=== PATIENT | male | born 1960 | race African-American/Black ===

== ENCOUNTER 2016-03-08 13:16 | Inpatient (IN) ==
[2016-03-08] MEDS: PERCOCET 10-325 PO PRN ×2 (13:50→20:07)
[2016-03-08 13:53] LABS: BASOPHILS % (AUTO) 0.3 % (0.0-3.0); EOSINOPHILS # (AUTO) 0.3 K/ul (0.0-0.7); EOSINOPHILS % (AUTO) 2.4 % (0.0-7.0); HEMATOCRIT 33.3 % (42.0-52.0); HEMOGLOBIN 11.4 g/dl (14.0-18.0); IMMATURE GRANULOCYTE % (AUTO) 0.3 % (0.0-5.0); LYMPHOCYTES # (AUTO) 1.6 K/uL (0.60-3.4); LYMPHOCYTES % (AUTO) 14.1 (10.0-50.0); MEAN CORPUSCULAR HEMOGLOBIN 29.5 pg (27.0-31.0); MEAN CORPUSCULAR HGB CONC 34.2 (31.8-35.4); MONOCYTES # (AUTO) 1.7 K/uL (0.4-2.0); NEUTROPHILS # (AUTO) 7.6 K/ul (2.0-6.9); NEUTROPHILS % (AUTO) 67.9; PLATELET COUNT 177 10^3/uL (140-440); RED BLOOD COUNT 3.87 10^6/ul (4.70-6.10); WHITE BLOOD COUNT 11.17 K/ul (4.2-10.2)
[2016-03-08 14:12] VITALS: BMI 36.1
--- NOTE | 2016-03-08 14:16 | RS.OTINEVL ---
Subjective - Patient information Date of Evaluation: 03/08/16 Date of Arrival on Unit: 03/08/16 Admitted From:: Facility Transfer Usual Living Arrangement: With Parent Living Arrangement Comments: Pt moved in with his mother because she fell and fractured her hip. Home Environment: House, Stairs (few), Rail, Ramp Medical History Comments:: osteoarthritis Surgical History: Knee Replacement Surgical History Comments:: R TKA, Back surgery x 2 10 yrs. ago, Subjective Information/ Patient Comments:: My pain is a 10/10. 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 Current Equipment Used at Home: Pt does not have equipment at home. Pain Assessment - Pain Pain Score: 10 Side: right Pain Location Body Site: Knee Pain Aggravating Factors: ADL's, Changing Position, Standing, Sitting, Walking Pain Alleviating Factors: Ice, Medication (Pt has numbness of his bilateral hands.) Interventions - Objective Patient Orientation: Person, Place, Time, Situation Observation: Pt is in pain. Patient is very tired. Interventions - ROM Right Upper Extremity AROM: WFL's Left Upper Extremity AROM: WFL's - Strength Right Upper Extremity Strength: Mild Weakness Left Upper Extremity Strength: Mild Weakness - Sensation Right Upper Extremity Sensation: Impaired Left Upper Extremity Sensation: Impaired Comments:: Pt reports his pain and numbness of bilateral hands started yesterday. Balance - Sitting Balance Static Sitting Balance: Poor Dynamic Sitting Balance: Poor - Standing Balance Static Standing Balance: Poor Dynamic Standing Balance: Poor ADL Skills - Self Feeding Self Feeding: Independent - Grooming Grooming: Mod Assist - Bathing Bathing UE: Independent Bathing LE: Mod Assist - Dressing Dressing UE: Independent Dressing LE: Mod Assist - Toilet Management Toileting Management: Min Assist Functional Mobility - Bed Mobility Rolling R/L: Mod Assist Scooting: Mod Assist Supine to Sit: Mod Assist Sit to Supine: Mod Assist - Transfers Sit to Stand: Mod Assist Stand to Sit: Mod Assist Stand Pivot Transfers: Mod Assist Additional Treatment Performed - Additional units charged ADL: 15 - Time with patient Total treatment time: 32 Activities Patient Interests:: Watching Television Patient Education Patient Education: Education of diagnosis, Home Exercise Program, Home Safety, Education of Plan of Care Teaching Recipient: Patient Teaching Methods: Discussion Assessment Problem List:: Decreased level of function, Requires training/education, Decreased safety/Risk of falls, Weakness, Pain limits previous level of function Rehab Potential: Good Further Therapy Indicated?: Yes Short Term Goals - Goals GOAL 1: Pt to be CGA with bed mobility. Goal to be met by: 03/15/16 GOAL 2: Pt to be CGA for sit to stand. Goal to be met by: 03/15/16 GOAL 3: Pt to increase [place] of ADLS to CGA. Goal to be met by: 03/15/16 Sld Inclusion Teacher Goals GOAL 1: Pt to be Modified Independent with Bed mobility. Goal to be met by: 03/22/16 GOAL 2: Pt to be modified independent for sit to stand. Goal to be met by: 03/22/16 GOAL 3: Pt to be Modified independent with ADLS. Goal to be met by: 03/22/16 Plan Plan of Care: Therapeutic EX, Neuromuscular Re-Educ, Therapeutic Activity, Self- Care/Home Management Modalities: Cold Pack/Cryotherapy Frequency of Treatment: 1-2 X day, as tolerated Duration of Treatment: 2 Weeks Anticipated Discharge Destination: Home
[2016-03-08 15:12] LABS: ALBUMIN 3.1 g/dL (3.4-5.0); ALBUMIN/GLOBULIN RATIO 0.91; ANION GAP 11.7; BILIRUBIN,TOTAL 1.05 mg/dL (0.00-1.20); BUN/CREATININE RATIO 11.11; CALCIUM 8.5 mg/dL (8.2-10.2); CREATININE 0.99 mg/dL (0.60-1.10); POTASSIUM 3.7 mmol/L (3.5-5.1); TOTAL PROTEIN 6.5 g/dL (6.4-8.2)
[2016-03-08] MEDS: ASPIRIN EC PO SCH (16:30)
[2016-03-09] MEDS: PERCOCET 10-325 PO PRN ×4 (04:28→17:26)
[2016-03-09] MEDS: ASPIRIN EC PO SCH ×2 (08:53→17:26)
[2016-03-09] MEDS ORDERED: CITRATE OF MAGNESIA PO STA (09:29)
[2016-03-09] MEDS: COLACE PO SCH ×2 (10:02→20:47)
--- NOTE | 2016-03-09 13:13 | RS.PTINEVL ---
Subjective - Patient information Date of Evaluation: 03/09/16 Admitted From:: Facility Transfer Usual Living Arrangement: With Parent Living Arrangement Comments: Has moved in with his mother to help take care of her. Home Environment: Stairs (few) (5), Rail Medical History Comments:: back surgery X2, neck surgery, right TKA 03/05/16 LATEX ALLERGY?: No Subjective Information/ Patient Comments:: Patient reports right knee pain. Reports he had pain medication eariler this morning. He agrees to ambulate and exercise the right knee. Following ambulation, he reports increased knee pain. States ice has helped. - Level of function Prior to this admission, the patient could do the following:: Independent Selfcare, Independent ADL's, Independent Ambulation, Perform Non Destructive Testing Specialist/ Cooking, Drive, Participated in Social Activities Outside home, Volunteer/Work Current Level of Function: Partially Dependent Current Equipment Used at Home: Pt does not have equipment at home. Interventions - Objective Patient Orientation: Person, Place, Time, Situation Observation: Incision at anterior right knee is clean and free of drainage. Light dressing in place. Moderate swelling noted to right LE compared to the left. Range of Motion - ROM Right Upper Extremity AROM: WFL's Left Upper Extremity AROM: WFL's Right Lower Extremity AROM: Moderate limitation (right knee ~-10 degrees extension to 70 degrees flexion) Left Lower Extremity AROM: WFL's Muscle Strength - Muscle Strength Right Upper Extremity Strength: Normal Left Upper Extremity Strength: Normal Right Lower Extremity Strength: Mild Weakness Left Lower Extremity Strength: Normal Sensation - Sensation Comments: Reports some tingling in the right LE & hands since surgery. Balance - Sitting Balance and Reactions Static Sitting Balance: Normal Dynamic Sitting Balance: Normal - Standing Balance and Reactions Static Standing Balance: Good (-) Dynamic Standing Balance: Fair (+) Functional Mobility - Bed Mobility Rolling R/L: Independent Scooting: Independent Supine to Sit: CGA, Min Assist, 1 person assist, Verbal Cues, Tactile Cues Comments:: Patient uses gait belt around the right foot to assist right leg off the bed. - Transfers Sit to Stand: CGA, Min Assist, 1 person assist, Verbal Cues, Tactile Cues Stand to Sit: CGA, 1 person assist, Verbal Cues, Tactile Cues Stand Pivot Transfers: CGA, 1 person assist, Verbal Cues, Tactile Cues - Safety Awareness Safety Awareness: Fair Ambulation - Ambulation Weight Bearing Status: FWB Assistive Device Used: Rolling Walker Orthotic/Prosthetic Device: No Distance: 150 feet Assistance needed with Ambulation: CGA, Min Assist, 1 person assist, Verbal Cues , Tactile Cues Quality of Ambulation: Patient demonstrates difficulty tolerating full weight on right LE. Reports significant pain with weight bearing. Patient often gets too close into walker and appears he could get off balance. Verbal cues to keep the walker a good distance from him. Gait Deviations: Wide Based gait, Forward posture, Short stride, Lacks step continuity Ambulation Comments: Decreased right hip and knee flexion during swing phase. Decreased heel strike on the right LE. Factors Affecting Ambulation: Pain, Decreased ROM, Decreased Safety Treatment time - Time with patient Total treatment time: 19 (mins) Assessment - Assessment Problem List:: Decreased level of function, Requires training/education, Decreased safety/Risk of falls, Pain limits previous level of function Rehab Potential: Good Further Therapy Indicated?: Yes Short Term Goals GOAL #1: Right knee active flexion to 80 degrees. Goal to be met by: 03/12/16 GOAL #2: Supine to sit with supvn/CGA of one. Goal to be met by: 03/12/16 GOAL #3: Pt uses RW with transfers/amb with good safety consistently. Goal to be met by: 03/12/16 Correction Goals GOAL #1: Pt independent in all bed mobility. Goal to be met by: 03/14/16 GOAL #2: Pt independent w/ all transfers with good safety. Goal to be met by: 03/14/16 GOAL #3: Amb. with RW household distances with good safety. Goal to be met by: 03/14/16 Plan Plan of Care: Therapeutic EX, Neuromuscular Re-Educ, Therapeutic Activity, Self- Care/Home Management Modalities: Cold Pack/Cryotherapy Frequency of Treatment: 1-2 X day, as tolerated Duration of Treatment: 4-5 days Anticipated Discharge Destination: Home
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
[2016-03-10] MEDS: PERCOCET 10-325 PO PRN ×5 (06:13→23:15)
[2016-03-10] MEDS: ASPIRIN EC PO SCH ×2 (08:53→17:30)
[2016-03-10] MEDS: COLACE PO SCH ×2 (08:53→21:31)
[2016-03-11] MEDS: PERCOCET 10-325 PO PRN ×2 (03:33→09:47)
[2016-03-11 07:48] LABS: BASOPHILS % (AUTO) 0.2 % (0.0-3.0); EOSINOPHILS # (AUTO) 0.3 K/ul (0.0-0.7); EOSINOPHILS % (AUTO) 2.6 % (0.0-7.0); HEMATOCRIT 30.4 % (42.0-52.0); HEMOGLOBIN 10.2 g/dl (14.0-18.0); IMMATURE GRANULOCYTE % (AUTO) 0.3 % (0.0-5.0); LYMPHOCYTES # (AUTO) 1.9 K/uL (0.60-3.4); LYMPHOCYTES % (AUTO) 18.8 (10.0-50.0); MEAN CORPUSCULAR HEMOGLOBIN 29.5 pg (27.0-31.0); MEAN CORPUSCULAR HGB CONC 33.6 (31.8-35.4); MEAN CORPUSCULAR VOLUME 87.9 fl (80.0-94.0); MONOCYTES # (AUTO) 1.6 K/uL (0.4-2.0); MONOCYTES % (AUTO) 15.4 (0-10); NEUTROPHILS # (AUTO) 6.3 K/ul (2.0-6.9); NEUTROPHILS % (AUTO) 62.7; PLATELET COUNT 242 10^3/uL (140-440); RED BLOOD COUNT 3.46 10^6/ul (4.70-6.10); WHITE BLOOD COUNT 10.07 K/ul (4.2-10.2)
[2016-03-11 08:11] LABS: ALBUMIN 2.9 g/dL (3.4-5.0); ALBUMIN/GLOBULIN RATIO 0.85; ANION GAP 11.9; BILIRUBIN,TOTAL 1.47 mg/dL (0.00-1.20); BUN/CREATININE RATIO 11.23; CALCIUM 8.5 mg/dL (8.2-10.2); CREATININE 0.89 mg/dL (0.60-1.10); POTASSIUM 3.9 mmol/L (3.5-5.1); TOTAL PROTEIN 6.3 g/dL (6.4-8.2)
[2016-03-11] MEDS: ASPIRIN EC PO SCH ×2 (08:21→17:51)
[2016-03-11] MEDS: COLACE PO SCH ×2 (08:21→20:44)
[2016-03-11] MEDS: TORADOL PO SCH ×3 (15:09→23:43)
[2016-03-12] MEDS: TORADOL PO SCH (05:05)
[2016-03-12] MEDS: PROTONIX PO SCH (05:40)
[2016-03-12 07:28] LABS: BASOPHILS % (AUTO) 0.3 % (0.0-3.0); EOSINOPHILS # (AUTO) 0.2 K/ul (0.0-0.7); EOSINOPHILS % (AUTO) 1.8 % (0.0-7.0); HEMATOCRIT 29.3 % (42.0-52.0); IMMATURE GRANULOCYTE % (AUTO) 0.5 % (0.0-5.0); LYMPHOCYTES # (AUTO) 1.5 K/uL (0.60-3.4); MEAN CORPUSCULAR HEMOGLOBIN 29.7 pg (27.0-31.0); MEAN CORPUSCULAR HGB CONC 34.1 (31.8-35.4); MEAN CORPUSCULAR VOLUME 86.9 fl (80.0-94.0); MONOCYTES # (AUTO) 1.5 K/uL (0.4-2.0); MONOCYTES % (AUTO) 13.3 (0-10); NEUTROPHILS # (AUTO) 8.1 K/ul (2.0-6.9); NEUTROPHILS % (AUTO) 71.1; PLATELET COUNT 263 10^3/uL (140-440); RED BLOOD COUNT 3.37 10^6/ul (4.70-6.10); WHITE BLOOD COUNT 11.39 K/ul (4.2-10.2)
[2016-03-12 07:47] LABS: ALBUMIN 2.9 g/dL (3.4-5.0); ALBUMIN/GLOBULIN RATIO 0.88; ANION GAP 14.3; BILIRUBIN,TOTAL 1.48 mg/dL (0.00-1.20); BUN/CREATININE RATIO 13.48; CALCIUM 8.6 mg/dL (8.2-10.2); CREATININE 0.89 mg/dL (0.60-1.10); POTASSIUM 4.3 mmol/L (3.5-5.1); TOTAL PROTEIN 6.2 g/dL (6.4-8.2)
[2016-03-12] MEDS: ASPIRIN EC PO SCH ×2 (08:47→17:21)
[2016-03-12] MEDS: COLACE PO SCH ×2 (08:47→20:26)
[2016-03-12] MEDS: PERCOCET 10-325 PO PRN (08:54)
[2016-03-12] MEDS ORDERED: TORADOL IVP SCH (09:30)
--- NOTE | 2016-03-12 12:33 | US ---
EXAM: ULTRASOUND LOWER EXTREMITY VENOUS DOPPLER EXAM HISTORY: Tenderness since recent surgery. FINDDINGS: Right lower extremity venous Doppler exam. Real time hennessy-scale, Doppler spectral analys is and color-flow Doppler imaging performed. The veins targeted for evaluation include the common f emoral, greater saphenous, profundus, femoral, popliteal, peroneal, anterior tibial and posterior ti bial. The evaluated veins demonstrated normal spontaneous flow and compression without evidence of thrombosis. No valvular reflux. IMPRESSION: No venous thrombosis identified within the areas evaluated.
[2016-03-12] MEDS ORDERED: TORADOL IM SCH (13:00)
[2016-03-12] MEDS: TORADOL IM SCH (18:36)
[2016-03-13] MEDS: TORADOL IM SCH ×5 (01:20→19:04)
[2016-03-13 04:58] LABS: BASOPHILS % (AUTO) 0.2 % (0.0-3.0); EOSINOPHILS # (AUTO) 0.3 K/ul (0.0-0.7); EOSINOPHILS % (AUTO) 2.1 % (0.0-7.0); HEMATOCRIT 29.1 % (42.0-52.0); HEMOGLOBIN 9.8 g/dl (14.0-18.0); IMMATURE GRANULOCYTE % (AUTO) 0.8 % (0.0-5.0); LYMPHOCYTES % (AUTO) 15.9 (10.0-50.0); MEAN CORPUSCULAR HEMOGLOBIN 29.3 pg (27.0-31.0); MEAN CORPUSCULAR HGB CONC 33.7 (31.8-35.4); MEAN CORPUSCULAR VOLUME 86.9 fl (80.0-94.0); MONOCYTES # (AUTO) 1.8 K/uL (0.4-2.0); MONOCYTES % (AUTO) 14.5 (0-10); NEUTROPHILS # (AUTO) 8.3 K/ul (2.0-6.9); NEUTROPHILS % (AUTO) 66.5; PLATELET COUNT 297 10^3/uL (140-440); RED BLOOD COUNT 3.35 10^6/ul (4.70-6.10); WHITE BLOOD COUNT 12.42 K/ul (4.2-10.2)
[2016-03-13 05:23] LABS: ALBUMIN 2.9 g/dL (3.4-5.0); ALBUMIN/GLOBULIN RATIO 0.85; ANION GAP 14.3; BILIRUBIN,TOTAL 1.53 mg/dL (0.00-1.20); BUN/CREATININE RATIO 13.4; CALCIUM 8.5 mg/dL (8.2-10.2); CREATININE 0.97 mg/dL (0.60-1.10); POTASSIUM 4.3 mmol/L (3.5-5.1); TOTAL PROTEIN 6.3 g/dL (6.4-8.2)
[2016-03-13] MEDS: PROTONIX PO SCH (05:37)
[2016-03-13] MEDS: COLACE PO SCH ×2 (08:16→20:57)
[2016-03-13] MEDS: ASPIRIN EC PO SCH ×2 (08:16→17:28)
[2016-03-13] MEDS: PERCOCET 10-325 PO PRN ×3 (08:31→21:31)
--- NOTE | 2016-03-13 08:56 | PN ---
DATE OF SERVICE: 03/11/16 SUBJECTIVE: The patient is a 55 year old black male hospitalized to swing bed after total right knee orthoplasty. The patient's pain rating is 2-8 on scale of 1-10 even with the Percocet 10-325 two tablets every four and to six hours. Will add Toradol 30mg IV Q12. Labs will be drawn today CBC and CMP. REVIEW OF SYSTEMS: CONSTITUTIONAL: No night sweats. No fatigue, malaise, lethargy. No fever or chills. HEENT: Eyes: No visual changes. No eye pain. No eye discharge. ENT: No runny nose. No epistaxis. No sinus pain. No sore throat. No odynophagia. No congestion. RESPIRATORY: No cough, no congestion. No hemoptysis. CARDIOVASCULAR: No angina symptoms. No CHF symptoms. No atypical chest pain for CAD. No palpitations. No shortness of breath. No PND. No orthopnea. GASTROINTESTINAL: No abdominal pain. No nausea or vomiting. No diarrhea or constipation. No hematemesis. No hematochezia. GENITOURINARY: No urgency. No frequency. No dysuria. No hematuria. No obstructive symptoms. No discharge. No pain. No significant abnormal bleeding. MUSCULOSKELETAL: No musculoskeletal pain; no joint swelling. NEUROLOGICAL: No headache. No neck pain. No syncope. No seizures. No dizziness. PSYCHIATRIC: Not anxious. No depression. No suicidal thoughts. No homicidal thoughts. SKIN: No rash. No lesions. No wounds. ENDOCRINE: No unexplained weight loss. No weight gain. HEMATOLOGIC/LYMPHATIC: No anemia. No purpura. No petechiae. No prolonged or excessive bleeding. No palpable lymph nodes. PHYSICAL EXAMINATION: GENERAL: The patient is oriented to time, place and person. He is up and about doing, well with the care he is getting. VITAL SIGNS: Temperature 98.3, pulse 84, blood pressure 128/72, respiratory rate 20 and pulse ox 96%HEENT: Head normocephalic, atraumatic. Eyes: Extraocular muscles are intact. Pupils are equal, round and reactive to light and accommodation. Ears: No lesions. Nose appeared normal. Throat: No exudate or erythema. NECK: Supple. No JVD, no carotid bruit. No lymphadenopathy or thyromegaly. LUNGS: Clear to auscultation. Percussion note normal. Chest symmetrical. HEART: S1, S2, no S3. No murmurs. No cyanosis or clubbing. No ascites. Pulses: Dorsalis pedis and posterior tibial pulses +1 to +2 both sides. ABDOMEN: Soft. Nontender. Bowel sounds active. No CVA tenderness. No mass felt. EXTREMITIES: No edema. Full range of motion of all extremities, equal. The right knee is swollen as usual. Some tenderness of the right calf which is diffused, mild likely from residual edema that you see post op. NEUROLOGIC: No focal deficit. Cranial nerves II through XII are grossly intact. No headache, no double vision or headache. SKIN: Not dry. Intact. Turgor - normal. LYMPHATIC: No palpable lymph nodes/no lymphedema. MUSCULOSKELETAL: Normal joints with no swelling. Muscle tone is normal. ASSESSMENT: 1. Right knee replacement with pain. 2. Both hand especially the palmar aspect numbness off and on and bothers him a lot. It started after the surgery. The patient had mentioned to PA on post op rounds and he was explained that probably while he was laying on the operating table with his shoulders being tucked in mcc and this is a common thing to happen. Will monitor the patient's pain as far as that aspect is concerned. I am sure it is from brachial plexus Axilla being irritated with the Neuronitis PLAN: 1. Tomorrow we will be Venous Scan just to be on the safe side. 2. The patient will be put on Protonix QAM 3. Toradol will be give 30 IV Q 12. TIME SPENT: More than 30 minutes. Plan and coordination of the patient's care discussed in the presence of nurse. SOUTH
--- NOTE | 2016-03-13 09:03 | PN ---
DATE OF SERVICE: 03/10/16 SUBJECTIVE: The patient is a 55 year old black male was hospitalized with right total knee orthoplasty replacement. The patient is complaining of pain. He has been on Percocet one to two tablets ever four to six hours. Other then that the patient is up and about walking around. The patient had surgery done on 03/05/16 nearly a week ago. REVIEW OF SYSTEMS: CONSTITUTIONAL: No night sweats. No fatigue, malaise, lethargy. No fever or chills. HEENT: Eyes: No visual changes. No eye pain. No eye discharge. ENT: No runny nose. No epistaxis. No sinus pain. No sore throat. No odynophagia. No congestion. RESPIRATORY: No cough, no congestion. No hemoptysis. CARDIOVASCULAR: No angina symptoms. No CHF symptoms. No atypical chest pain for CAD. No palpitations. No shortness of breath. No. PND. No Orthopnea. GASTROINTESTINAL: No abdominal pain. No nausea or vomiting. No diarrhea or constipation. No hematemesis. No hematochezia. GENITOURINARY: No urgency. No frequency. No dysuria. No hematuria. No obstructive symptoms. No discharge. No pain. No significant abnormal bleeding. MUSCULOSKELETAL: No musculoskeletal pain; no joint swelling. NEUROLOGICAL: No headache. No neck pain. No syncope. No seizures. No dizziness. PSYCHIATRIC: Not anxious. No depression. No suicidal thoughts. No homicidal thoughts. SKIN: No rash. No lesions. No wounds. ENDOCRINE: No unexplained weight loss. No weight gain. HEMATOLOGIC/LYMPHATIC: No anemia. No purpura. No petechiae. No prolonged or excessive bleeding. No palpable lymph nodes. PHYSICAL EXAMINATION: GENERAL: The patient is oriented to time, place and person. VITAL SIGNS: Temperature 98, pulse 80, respiratory 15, blood pressure 130/70 and pulse ox 96%. HEENT: Head normocephalic, atraumatic. Eyes: Extraocular muscles are intact. Pupils are equal, round and reactive to light and accommodation. Ears: No lesions. Nose appeared normal. Throat: No exudate or erythema. NECK: Supple. No JVD, no carotid bruit. No lymphadenopathy or thyromegaly. LUNGS: Decreased breath sounds but clear to auscultation. Percussion note normal. Chest symmetrical. HEART: S1, S2, no S3. No murmurs. No cyanosis or clubbing. No ascites. Pulses: Dorsalis pedis and posterior tibial pulses +1 to +2 both sides. ABDOMEN: Soft. Nontender. Bowel sounds active. No CVA tenderness. No mass felt. EXTREMITIES: No edema. Full range of motion of all extremities, equal. The patient's right knee is mild to moderate swelling. Muscles are non-tender with mild swelling. NEUROLOGIC: No focal deficit. Cranial nerves II through XII are grossly intact. No headache, no double vision or headache. SKIN: Not dry. Intact. Turgor - normal. LYMPHATIC: No palpable lymph nodes/no lymphedema. MUSCULOSKELETAL: Normal joints with no swelling. Muscle tone is normal. ASSESSMENT: 1. Status post right knee replacement, orthoplasty with uncomplicated course post right knee replacement. PLAN: 1. Continue pain management 2. Encouraged patient to eat 3. Encouraged patient to walk and do physical therapy. TIME SPENT: More than 30 minutes. Plan and coordination of the patient's care discussed in the presence of nurse. SOUTH
--- NOTE | 2016-03-13 15:05 | PN ---
DATE OF SERVICE: 03/12/16 SUBJECTIVE: The patient admitted with the right knee replacement and physical therapy. As of now walking with the walker, still has pain. Complaints about the right hand numbness and left 4th and 5th finger numbness after the surgery. He says that the surgeon did tell him that patient was put in an upright positive with his arm ever since he has been having this problem. He is doing the squeeze ball exercise on the right hand. The patient did have a history of the cervical spine surgery and he did has that his pain was never there until it started after the surgery. REVIEW OF SYSTEMS: CONSTITUTIONAL: No fever, no chills. HEENT: Normal. ENDOCRINE: No weight gain, no weight loss. CVS: No angina symptoms. No CHF symptoms. No palpitations. No atypical chest pain for CAD. No shortness of breath. No PND, no orthopnea. RESPIRATORY: No cough, no hemoptysis. GI: No nausea, no vomiting. No abdominal pain. : No hematuria. No polyuria. MUSCULOSKELETAL:. No joint swelling. Right lower extremity pain and swelling. Dr. Ferrell ordered the Venous Doppler for today. PSYCHIATRIC: Not anxious. No depression. No suicidal thoughts. No homicidal thoughts. SKIN: Intact. No rash. PHYSICAL EXAMINATION: V/S: Blood pressure 141/69, respiratory 20, heart rate 95 and temperature 98.2 HEENT: Normocephalic, atraumatic. Ears, eyes, nose and throat normal. Mucosa dry. Pallor positive. No icterus. NECK: Supple. No JVD, no carotid bruit. No lymphadenopathy. LUNGS: Bilateral entry is decreased and clear to auscultation. No rales or rhonchi. HEART: S1, S2 normal. No S3. No murmur, gallop or regurgitation. ABDOMEN: Soft, nontender. Bowel sounds active. No rigidity. No rebound or guarding. No CVA tenderness. EXTREMITIES: No clubbing, cyanosis or pedal edema. Pulses in the upper extremities are intact. Circular Saw Filer in both hands. Right knee examination: swelling and warmness are better. Some calf tenderness not warm to touch. MUSCULOSKELETAL: No joint swelling. NEUROLOGIC: Awake, alert, oriented times three. No focal deficit. LYMPHATIC: No lymph nodes palpable. SKIN: Intact. LABS: WBC 11.39, hgb 10.0, hct 29.3, plt count 293, sodium 140, potassium 4.3, chloride 103, bicarb 27, BUN 12 and creatinine 0.89. ASSESSMENT: 1. Status post right knee replacement 2. Post surgical anemia 3. Both hand numbness, mostly likely rule out carpel tunnel, evaluation as out patient verus +post surgical complication 4. Hypertension 5. Obesity 6. Lumbar spine surgery PLAN: 1. Follow up on the Venous Doppler report 2. Continue the Protonix, Duocet and Toradol 3. Continue the physical therapy. Will follow the patient in daily rounds. TIME SPENT: More than 30 minutes MTDD
[2016-03-14] MEDS: TORADOL IM SCH ×3 (01:28→12:55)
[2016-03-14] MEDS: PERCOCET 10-325 PO PRN ×4 (04:21→20:27)
[2016-03-14 04:54] LABS: BASOPHILS # (AUTO) 0.1 K/uL (0-0.2); BASOPHILS % (AUTO) 0.4 % (0.0-3.0); EOSINOPHILS # (AUTO) 0.4 K/ul (0.0-0.7); EOSINOPHILS % (AUTO) 2.8 % (0.0-7.0); HEMATOCRIT 29.6 % (42.0-52.0); HEMOGLOBIN 9.8 g/dl (14.0-18.0); LYMPHOCYTES # (AUTO) 2.1 K/uL (0.60-3.4); LYMPHOCYTES % (AUTO) 16.5 (10.0-50.0); MEAN CORPUSCULAR HGB CONC 33.1 (31.8-35.4); MEAN CORPUSCULAR VOLUME 87.6 fl (80.0-94.0); MONOCYTES # (AUTO) 1.5 K/uL (0.4-2.0); MONOCYTES % (AUTO) 11.7 (0-10); NEUTROPHILS # (AUTO) 8.5 K/ul (2.0-6.9); NEUTROPHILS % (AUTO) 67.6; PLATELET COUNT 337 10^3/uL (140-440); RED BLOOD COUNT 3.38 10^6/ul (4.70-6.10); WHITE BLOOD COUNT 12.51 K/ul (4.2-10.2)
[2016-03-14 05:13] LABS: ALBUMIN 2.9 g/dL (3.4-5.0); ALBUMIN/GLOBULIN RATIO 0.83; BILIRUBIN,TOTAL 1.34 mg/dL (0.00-1.20); CALCIUM 8.6 mg/dL (8.2-10.2); TOTAL PROTEIN 6.4 g/dL (6.4-8.2)
[2016-03-14] MEDS: PROTONIX PO SCH (05:31)
[2016-03-14] MEDS: ASPIRIN EC PO SCH ×2 (07:55→17:44)
[2016-03-14] MEDS: COLACE PO SCH ×2 (08:00→20:27)
--- NOTE | 2016-03-14 09:52 | PCM.PROG ---
Attending Provider: ATTENDING PROVIDER: Dr. RENEE CENTENO DATE OF SERVICE: 03/14/16 SUBJECTIVE: This 55 year old BLACK/ M was hospitalized 03/08/16. The patient is admitted to swing bed status post right knee replacement. Condition is improving. He still has soreness and is on pain medication, Percocet and Toradol IM. He has been ambulatory. Right leg swelling is much less; incision shows no sign of infection. Incision is healing wonderfully with no complications. Venous scan was negative. Cardiovascular status is stable. Hemoglobin and hematocrit are low but stable. Kidney functions are normal. REVIEW OF SYSTEMS: CONSTITUTIONAL: No night sweats. No fatigue, malaise, lethargy. No fever or chills. HEENT: Eyes: No visual changes. No eye pain. No eye discharge. ENT: No runny nose. No epistaxis. No sinus pain. No odynophagia. No congestion. RESPIRATORY: No cough, no congestion. No hemoptysis. CARDIOVASCULAR: No angina symptoms. No CHF symptoms. No atypical chest pain for CAD. No palpitations. No shortness of breath. GASTROINTESTINAL: No abdominal pain. No nausea or vomiting. No diarrhea or constipation. No hematemesis. No hematochezia. GENITOURINARY: No urgency. No frequency. No dysuria. No hematuria. No obstructive symptoms. No discharge. No pain. No significant abnormal bleeding. MUSCULOSKELETAL: No musculoskeletal pain; no joint swelling. NEUROLOGICAL: Awake, alert, oriented to time, place and person. No headache. No neck pain. No syncope. No seizures. No dizziness. PSYCHIATRIC: Not anxious. No depression. No suicidal thoughts. No homicidal thoughts. SKIN: No rash. No lesions. Right knee incision healthy looking. ENDOCRINE: No unexplained weight loss. No weight gain. HEMATOLOGIC/LYMPHATIC: No anemia. No purpura. No petechiae. No prolonged or excessive bleeding. No palpable lymph nodes. PHYSICAL EXAMINATION: GENERAL: The patient is awake, alert and oriented, lying/sitting in bed in no distress. VITAL SIGNS: Temperature 97.0 F, Pulse 98, Respiratory Rate 18, BP 125/67, Pulse Ox 96% HEENT: Head normocephalic, atraumatic. Eyes: Extraocular muscles are intact. Pupils are equal, round and reactive to light and accommodation. Ears: No lesions. Nose appeared normal. Throat: No exudate or erythema. NECK: Supple. No JVD, no carotid bruit. No lymphadenopathy or thyromegaly. LUNGS: Clear to auscultation. Percussion note normal. Chest symmetrical. HEART: S1, S2, no S3. No murmurs. No cyanosis or clubbing. No ascites. Pulses: Dorsalis pedis and posterior tibial pulses +1 to +2 both sides. ABDOMEN: Soft. Non-tender. Bowel sounds active. No CVA tenderness. No mass felt. EXTREMITIES: No edema. Full range of motion of all extremities, equal. Numbness in the right hand. Pulses equal both upper extremities. Right knee surgical incision healthy looking. NEUROLOGIC: No focal deficit. Cranial nerves II through XII are grossly intact. No headache, no double vision or headache. SKIN: Not dry. Intact. Turgor-normal. LYMPHATIC: No palpable lymph nodes/no lymphedema. MUSCULOSKELETAL: Normal joints with no swelling. Muscle tone is normal. LAB REVIEW: 03/14/16 04:47 03/14/16 04:47 03/14/16 04:47: WBC 12.51 H, RBC 3.38 L, Hgb 9.8 L, Hct 29.6 L, MCV 87.6, MCH 29.0, MCHC 33.1, RDW Coeff of Lyudmila 11.9, Plt Count 337, Immature Gran % (Auto) 1.0, Neut % (Auto) 67.6, Lymph % (Auto) 16.5, Frio % (Auto) 11.7 H, Eos % (Auto ) 2.8, Baso % (Auto) 0.4, Immature Gran # (Auto) 0.1, Neut # 8.5 H, Lymph # 2.1 , Frio # 1.5, Eos # 0.4, Baso # 0.1, Sodium 139, Potassium 4.0, Chloride 104, Carbon Dioxide 27, Anion Gap 12.0, BUN 15, Creatinine 1.00, Estimated GFR (MDRD ) 95.00, BUN/Creatinine Ratio 15.00, Glucose 101 H, Calcium 8.6, Total Bilirubin 1.34 H, AST 32, ALT 33, Alkaline Phosphatase 54, Total Protein 6.4, Albumin 2.9 L, Globulin 3.5, Albumin/Globulin Ratio 0.83 ASSESSMENT: 1. Total right knee replacement, recovering very well. 2. Numbness in the right hand is less than before but still present. No neurological deficit; pulses equal both upper extremities, likely post surgical. Advised to followup with Dr. Saxena on March 22 and address this issue also. The patient had called the PA at Dr. Saxena's office for the same problem. 3. Anemia. PLAN: 1. Niferex 150 mg daily times 60 days. 2. Followup with Dr. Mia Gifford and Dr. Saxena as an outpatient. 3. Planning for discharge home tomorrow. 4. Elevate legs when sitting. 5. Continue PT/OT. Plan and coordination of the patient's care discussed in the presence of Cv/Cvn Cv Tsc System Operator and nurse. CONDITION: Stable SCRIBED BY: TODD CRAWFORD, [employer] scribed while in presence of service performed by Dr. RENEE CENTENO on 03/14/16 ([id number])
[2016-03-14] MEDS: NIFEREX 150 PO SCH (10:27)
[2016-03-15] MEDS: PROTONIX PO SCH (05:40)
[2016-03-15] MEDS: PERCOCET 10-325 PO PRN (05:40)
[2016-03-15 06:44] LABS: BASOPHILS % (AUTO) 0.3 % (0.0-3.0); EOSINOPHILS # (AUTO) 0.3 K/ul (0.0-0.7); EOSINOPHILS % (AUTO) 2.5 % (0.0-7.0); HEMATOCRIT 32.3 % (42.0-52.0); HEMOGLOBIN 10.8 g/dl (14.0-18.0); IMMATURE GRANULOCYTE % (AUTO) 0.9 % (0.0-5.0); LYMPHOCYTES # (AUTO) 1.5 K/uL (0.60-3.4); LYMPHOCYTES % (AUTO) 12.8 (10.0-50.0); MEAN CORPUSCULAR HEMOGLOBIN 29.3 pg (27.0-31.0); MEAN CORPUSCULAR HGB CONC 33.4 (31.8-35.4); MEAN CORPUSCULAR VOLUME 87.5 fl (80.0-94.0); MONOCYTES # (AUTO) 1.1 K/uL (0.4-2.0); MONOCYTES % (AUTO) 9.4 (0-10); NEUTROPHILS # (AUTO) 8.8 K/ul (2.0-6.9); NEUTROPHILS % (AUTO) 74.1; PLATELET COUNT 403 10^3/uL (140-440); RED BLOOD COUNT 3.69 10^6/ul (4.70-6.10); WHITE BLOOD COUNT 11.82 K/ul (4.2-10.2)
[2016-03-15 06:45] VITALS: BP 134/71; TEMP 99.9
[2016-03-15 07:10] LABS: ALBUMIN 3.2 g/dL (3.4-5.0); ALBUMIN/GLOBULIN RATIO 0.82; BILIRUBIN,TOTAL 1.22 mg/dL (0.00-1.20); BUN/CREATININE RATIO 12.28; CREATININE 1.14 mg/dL (0.60-1.10); TOTAL PROTEIN 7.1 g/dL (6.4-8.2)
[2016-03-15] MEDS: ASPIRIN EC PO SCH (08:41)
[2016-03-15] MEDS: NIFEREX 150 PO SCH (08:42)
[2016-03-15] MEDS: COLACE PO SCH (08:42)
--- NOTE | 2016-03-15 09:37 | PCM.PROG ---
Attending Provider: ATTENDING PROVIDER: Dr. RENEE CENTENO DATE OF SERVICE: 03/15/16 SUBJECTIVE: This 55 year old BLACK/ M was hospitalized 03/08/16. The patient is hospitalized in swing bed with right total knee replacement. The patient's condition has steadily improved without complication. His wound is clear with no drainage, swelling much less than before. Calf is nontender. He is up and about with PT and PT has released him. REVIEW OF SYSTEMS: CONSTITUTIONAL: No night sweats. No fatigue, malaise, lethargy. No fever or chills. HEENT: Eyes: No visual changes. No eye pain. No eye discharge. ENT: No runny nose. No epistaxis. No sinus pain. No odynophagia. No congestion. RESPIRATORY: No cough, no congestion. No hemoptysis. CARDIOVASCULAR: No angina symptoms. No CHF symptoms. No atypical chest pain for CAD. No palpitations. No shortness of breath. GASTROINTESTINAL: No abdominal pain. No nausea or vomiting. No diarrhea or constipation. No hematemesis. No hematochezia. GENITOURINARY: No urgency. No frequency. No dysuria. No hematuria. No obstructive symptoms. No discharge. No pain. No significant abnormal bleeding. MUSCULOSKELETAL: Mild to moderate pain involving right knee. NEUROLOGICAL: Awake, alert, oriented to time, place and person. No headache. No neck pain. No syncope. No seizures. No dizziness. PSYCHIATRIC: Not anxious. No depression. No suicidal thoughts. No homicidal thoughts. SKIN: No rash. Incision is healthy looking. ENDOCRINE: No unexplained weight loss. No weight gain. HEMATOLOGIC/LYMPHATIC: No anemia. No purpura. No petechiae. No prolonged or excessive bleeding. No palpable lymph nodes. PHYSICAL EXAMINATION: GENERAL: The patient is awake, alert and oriented, lying/sitting in bed in no distress. VITAL SIGNS: Temperature 99.9 F, Pulse 100, Respiratory Rate 20, BP 134/71, Pulse Ox 95% HEENT: Head normocephalic, atraumatic. Eyes: Extraocular muscles are intact. Pupils are equal, round and reactive to light and accommodation. Ears: No lesions. Nose appeared normal. Throat: No exudate or erythema. NECK: Supple. No JVD, no carotid bruit. No lymphadenopathy or thyromegaly. LUNGS: Clear to auscultation. Percussion note normal. Chest symmetrical. HEART: S1, S2, no S3. No murmurs. No cyanosis or clubbing. No ascites. Pulses: Dorsalis pedis and posterior tibial pulses +1 to +2 both sides. ABDOMEN: Soft. Non-tender. Bowel sounds active. No CVA tenderness. No mass felt. EXTREMITIES: No edema. Mild swelling right knee; incision looks clear; no drainage. No evidence of infection. Full range of motion of all extremities, equal. NEUROLOGIC: No focal deficit. Cranial nerves II through XII are grossly intact. No headache, no double vision or headache. SKIN: Not dry. Intact. Turgor-normal. LYMPHATIC: No palpable lymph nodes/no lymphedema. MUSCULOSKELETAL: Normal joints with no swelling. Muscle tone is normal. LAB REVIEW: 03/15/16 05:30 03/15/16 05:30 03/15/16 05:30: WBC 11.82 H, RBC 3.69 L, Hgb 10.8 L, Hct 32.3 L, MCV 87.5, MCH 29.3, MCHC 33.4, RDW Coeff of Lyudmila 12.0, Plt Count 403, Immature Gran % (Auto) 0.9, Neut % (Auto) 74.1, Lymph % (Auto) 12.8, Gentry % (Auto) 9.4, Eos % (Auto) 2.5, Baso % (Auto) 0.3, Immature Gran # (Auto) 0.1, Neut # 8.8 H, Lymph # 1.5, Gentry # 1.1, Eos # 0.3, Baso # 0.0, Sodium 139, Potassium 4.0, Chloride 103, Carbon Dioxide 24, Anion Gap 16.0, BUN 14, Creatinine 1.14 H, Estimated GFR ( MDRD) 81.00, BUN/Creatinine Ratio 12.28, Glucose 112 H, Calcium 9.0, Total Bilirubin 1.22 H, AST 30, ALT 34, Alkaline Phosphatase 60, Total Protein 7.1, Albumin 3.2 L, Globulin 3.9, Albumin/Globulin Ratio 0.82 ASSESSMENT: 1. RIGHT TOTAL KNEE REPLACEMENT, 03/05/16, DR. SERVIN 2. ANEMIA, HEMOGLOBIN AND HEMATOCRIT HAVE GONE UP, WILL CONTINUE IRON SUPPLEMENT PLAN: 1. Continue iron supplement. 2. Followup with Dr. Mia Gifford, appointment has been made. 3. Followup with orthopedist, Dr. Servin as outpatient. 4. Discharge home today. The Patient will need rolling walker to assist with mobility and a tub transfer bench for bathing purposes; the patient is agreeable to both of these assistive devices. Dr. Servin's office will be contacted regarding home health for PT versus outpatient PT. Plan and coordination of the patient's care discussed in the presence of [employer] and nurse. CONDITION: Stable SCRIBED BY: TODD CRAWFORD System Admin scribed while in presence of service performed by Dr. RENEE CENTENO on 03/15/16 ([id number])
--- NOTE | 2016-03-15 12:37 | CM.DICTOOL ---
ADMISSION: 03/08/16 13:16 DISCHARGE: 2016 DATE OF SERVICE: 03/15/16 FINAL DIAGNOSIS Total Right Knee Arthroplasty 03/05/2016 Dr. Saxena Decline in function and mobility Anemia Hypertension Cervical Spine Surgery Lumbar Spine Surgery x 2 LAST VITALS Temp Pulse Resp BP Pulse Ox 99.9 F H 100 H 20 134/71 95 03/15/16 06:00 03/15/16 06:00 03/15/16 06:00 03/15/16 06:00 03/15/16 06:00 ACTIVE HOME MEDICATIONS ALLERGIES Pork/Porcine Containing Products Adverse Reaction (Verified 03/08/16 13:57) NEW PRESCRIPTIONS: Niferex 150 mg daily SMOKING: Not Applicable DISEASE SPECIFIC EDUCATION: Activity Post Operative Wound Care Medications Appointments LAB REVIEW: 03/15/16 05:30 03/15/16 05:30 03/15/16 05:30: WBC 11.82 H, RBC 3.69 L, Hgb 10.8 L, Hct 32.3 L, MCV 87.5, MCH 29.3, MCHC 33.4, RDW Coeff of Lyudmila 12.0, Plt Count 403, Immature Gran % (Auto) 0.9, Neut % (Auto) 74.1, Lymph % (Auto) 12.8, Colbert % (Auto) 9.4, Eos % (Auto) 2.5, Baso % (Auto) 0.3, Immature Gran # (Auto) 0.1, Neut # 8.8 H, Lymph # 1.5, Colbert # 1.1, Eos # 0.3, Baso # 0.0, Sodium 139, Potassium 4.0, Chloride 103, Carbon Dioxide 24, Anion Gap 16.0, BUN 14, Creatinine 1.14 H, Estimated GFR ( MDRD) 81.00, BUN/Creatinine Ratio 12.28, Glucose 112 H, Calcium 9.0, Total Bilirubin 1.22 H, AST 30, ALT 34, Alkaline Phosphatase 60, Total Protein 7.1, Albumin 3.2 L, Globulin 3.9, Albumin/Globulin Ratio 0.82 PLAN: Discharge home Diet: Resume as tolerated Activity: ambulate in the home as tolerated. Walk several times daily in the home, but do not walk for exercise. Elevate legs when in bed and when sitting Apply ice pack to affected extremity 20-30 minutes every 2 hours as needed for swelling and pain May shower, but no tub baths or swimming. Do not scrub the incision Do not remove surgical dressing. Medications: (over the counter) Enteric coated aspirin 325 mg twice a day for 30 days Colace 100 mg twice a day for bowels (stool softener) Do not take ibuprofen, motrin, advil or aleve while taking the aspirin Outpatient physical therapy orders will be sent from Dr. Saxena's office to [facility] in [place], [place] An appointment has been made with Dr. Mai Gifford on Mar.20 at 2:45 An appointment has been made with Dr. Diaz Saxena on Mar.22 at 9 am Mr. Benz is alert and oriented x 3. He is ambulatory per self with use of a rolling walker. He is independent with bathing, feeding and dressing. A rolling walker and tub transfer bench has been ordered and delivered from [facility] for his use at home. A surgical incision is noted to the right knee. The incision is well approximated, clean and without redness or drainage. A clear dressing is in place. He continues to report numbness to the right fingers, but all pulses are strong and the fingers are warm to touch. He has full movement of the right hand and fingers. No abdominal pain or nausea reported. He reports adequate stools. Meal intake is good at 100%. The patient will pick up attendant the prescription for oxycodone at the [facility] after his discharge today. Marco Antonio Ferrell MD
--- NOTE | 2016-03-20 13:43 | DS ---
DATE OF SERVICE: 03/15/16 FINAL DIAGNOSIS: 1. TOTAL RIGHT KNEE ARTHROPLASTY 03/05/16, DR. SAXENA 2. DECLINE IN FUNCTION AND MOBILITY 3. ANEMIA 4. HYPERTENSION 5. CERVICAL SPINE SURGERY 6. LUMBAR SPINE SURGERY TIMES TWO DISCHARGE INSTRUCTIONS: Followup appointment has been made with Dr. Mia Gifford on 03/20/16 at 2:45 p.m. An appointment has been made with Dr. Diaz Saxena on 03/22/16 at 9 a.m. MEDICATIONS AT DISCHARGE: Enteric coated aspirin 325 mg twice a day for 30 days Colace 100 mg twice a day for bowels (stool softener) NEW PRESCRIPTIONS: Niferex 150 mg daily DO NOT TAKE IBUPROFEN, MOTRIN, ADVIL OR ALEVE WHILE TAKING THE ASPIRIN DIET INSTRUCTIONS: Resume as tolerated. ACTIVITY: Ambulate in the home as tolerated. Walk several times daily in the home but do not walk for exercise. Elevate legs when in bed and when sitting. Apply ice pack to affected extremity 20-30 minutes every 2 hours as needed for swelling and pain. May shower, but no tub baths or swimming. Do not scrub the incision. SMOKING: N/A DISEASE SPECIFIC EDUCATION: Activity Postoperative wound care Medications Appointments HOSPITAL COURSE: 55-year-old black male hospitalized after having right total knee replacement. The patient's swing bed course in the hospital was practically uneventful. He progressed well. He is able to walk with some pain. The pain is more or less controlled with oral medications that were given by orthopedic M.D. The patient' s hemoglobin and hematocrit has gone up. He was put on supplements. There was no evidence of any active GI bleed. The patient's blood pressure and cardiovascular status is stable. The patient's incision on the right knee looks great with no evidence of any infection or inflammation. The patient had some tenderness in the calf muscle initially which was from extravasation of incision site because recent venous scan was negative. CONDITION AT TIME OF DISCHARGE: Stable. The patient is to be followed by Dr. Saxena. TIME SPENT: More than 60 minutes. [place]
== END 2016-03-15 15:15 | disposition home or self-care (01) | DRG 560 ==
LOC: MEDSURG B 13:16
PROVIDERS: ADMIT Internal Medicine; ATTEND Internal Medicine
DX: Z47.1 Aftercare following joint replacement surgery (principal); Z96.651 Presence of right artificial knee joint; D62 Acute posthemorrhagic anemia; R20.0 Anesthesia of skin; R53.81 Other malaise; R60.0 Localized edema; M79.661 Pain in right lower leg; I10 Essential (primary) hypertension; E66.9 Obesity, unspecified; Z98.890 Other specified postprocedural states
CPT/HCPCS: 36415; 80053; 84439; 84443; 85025; 87081; 93005; 93010; 97802